=== PATIENT | male | born 1940 ===

== ENCOUNTER 2021-12-25 14:19 | Emergency (ER) | payer MEDICARE ==
[2021-12-25 14:40] VITALS: BP 156/80
[2021-12-25 18:00] LABS: Alanine Aminotransferase 7 units/L (7-56); Albumin 3.9 g/dL (3.9-5); BUN/Creatinine Ratio 11; Blood Urea Nitrogen 11 mg/dL (9-20); Calcium 9.2 mg/dL (8.4-10.2); Hemolysis Index 6
[2021-12-25 18:08] LABS: Basophils % (Auto) 0.3 % (0.0-1.8); Eosinophils # (Auto) 0.1 K/mm3 (0.0-0.4); Eosinophils % (Auto) 1.8 % (0.0-4.3); Hematocrit 39.5 % (35.5-45.6); Hemoglobin 12.3 gm/dl (11.8-15.2); Lymphocytes # (Auto) 1.9 K/mm3 (1.2-5.4); Lymphocytes % (Auto) 34.6 % (13.4-35.0); Mean Corpuscular HGB Conc 31 % (32-34); Mean Corpuscular Volume 73 fl (84-94); Monocytes # (Auto) 0.6 K/mm3 (0.0-0.8); Monocytes % (Auto) 10.5 % (0.0-7.3); Platelet Count 231 K/mm3 (140-440); Red Blood Count 5.39 M/mm3 (3.65-5.03)
[2021-12-25 19:48] LABS: Color,Urine Yellow (Yellow)
[2021-12-25 19:51] LABS: RBC,Urine < 1.0 /HPF (0.0-6.0); WBC,Urine < 1.0 /HPF (0.0-6.0)
--- NOTE | 2021-12-26 00:43 | Emergency Department Report ---
HPI - General Chief Complaint: Medical Clearance PUI?: No Time Seen by Provider: 12/25/21 18:46 - HPI HPI: 81-year-old male who presents stating that he was previously placed on medication "for bipolar disorder and has been making me sleepy." Patient states he cannot recall the name of the medication but after he had started taking it, I started feeling sleepy all the time." Patient states that he does not believe he needs his medication. He does not know the name of the medication but states it is new to him. He states he has no thoughts of hurting himself or others and is not hearing any voices. He denies any chest pain shortness of breath difficulty breathing palpitations or any other symptoms. Pain currently 0-10. ED Past Medical Hx - Past Medical History Previous Medical History?: Yes - Surgical History Additional Surgical History: Bipolar disorder per patient's verbal report ED Review of Systems ROS: Stated complaint: WELLNESS CHECK Other details as noted in HPI Comment: All other systems reviewed and negative Physical Exam - Physical Exam Vital Signs: Vital Signs 12/25/21 14:20 Temperature 98.0 F Pulse Rate 80 Respiratory 17 Rate Blood Pressure 156/80 [Left] O2 Sat by Pulse 98 Oximetry General: Gen: pt is well appearing, no acute distress HEENT: Normocephalic atraumatic pupils equally round and reactive to light extraocular muscles intact sclera anicteric Neck: Full range of motion, no midline spinal tenderness palpation, no JVD, no carotid bruits, no nuchal rigidity CVS: S1-S2 regular rate and rhythm with no gallops rubs or murmurs, chest wall nontender Pulmonary: Clear to auscultation bilaterally, no wheezes rales or rhonchi Abdomen: Soft nondistended nontender no guarding or rebound tenderness, no palpable deformities or step-offs, normal active bowel sounds, no hepatosplenomegaly, no pulsatile masses : Deferred Extremities: No cyanosis no clubbing no edema, intact distal peripheral pulses, Integumentary: Skin normal, no petechia no purpura no abscess no lacerations no evidence of trauma no evidence of infection Neuro: Patient is awake alert and oriented to person place time situation, mentating well, cranial nerves II through XII intact, no focal neurodeficits, sensation grossly tact Psych: Calm cooperative, mood affect normal ED Course Vital Signs 12/25/21 14:20 Temperature 98.0 F Pulse Rate 80 Respiratory 17 Rate Blood Pressure 156/80 [Left] O2 Sat by Pulse 98 Oximetry - Reevaluation(s) Reevaluation #1: 12/25/21 19:41 Patient is awake alert and oriented to person place time situation, is mentating well, no focal neurological deficits, GCS 15, does not appear to be responding to internal stimuli. ED Medical Decision Making - Lab Data Result diagrams: 12/25/21 17:15 12/25/21 17:15 - Medical Decision Making 81-year-old male presents for evaluation of medical clearance. Patient states he has been feeling "sleepier" since having been started on an unspecified me dication for bipolar disorder and he was sent from his [facility] for evaluation. Vital signs stable. Patient reassessed multiple times and he is comfortable and well-appearing. GCS 15, and patient has no focal neurological deficits. He has no somnolence, no evidence of altered mental status, and is in no extremis throughout any of my times that he has been getting reassessed by me at his bedside. His vitals are stable. Remains hemodynamically stable and neurovascular intact serum labs and urinalysis are grossly unremarkable. Patient deemed stable for discharge back to [facility]. Per charge nurse Kayla, ancillary staff will contact the patient's [facility] to help arrange transportation for the patient to return back there. No further emergent work-up warranted at this time. Prior to discharge patient was given strict verbal and written return precautions. He verbalized u nderstanding and agreement the plan of care. Critical care attestation.: If time is entered above; I have spent that time in minutes in the direct care of this critically ill patient, excluding procedure time. ED Disposition Clinical Impression: Medication adverse effect Disposition: 01 HOME / SELF CARE / HOMELESS Is pt being admited?: No Does the pt Need Aspirin: No Condition: Stable Additional Instructions: Please speak to your medical provider about either discontinuing or changing the medication that has been making you sleepy. This is very important. Return to the nearest emergency department with possible if you develop lightheadedness, dizziness, difficulty breathing or shortness of breath, LOC dizziness, inability tolerate liquids or solids, or if any other new worrisome symptoms develop. Referrals: PRIMARY CARE, [Primary Care Provider] - 3-5 Days
== END 2021-12-26 00:40 | disposition home or self-care (01) ==
LOC: ED 14:19
DX: T50.905A Adverse effect of unspecified drugs, medicaments and biological substances, initial encounter (principal); Y92.89 Other specified places as the place of occurrence of the external cause
CPT/HCPCS: 36415; 80053; 81001; 84443; 85025; 99283